=== PATIENT | female | born 1995 | race African-American/Black ===

== ENCOUNTER 2023-09-30 15:02 | Emergency (ER) | payer MEDICAID ==
[~2023-09-30] VITALS: Ht 167.6 cm; Wt 60.0 kg
[2023-09-30 15:23] VITALS: O2SAT 100
[2023-09-30] MEDS: IBUPROFEN 600MG TABLET PO ONE (17:59)
[2023-09-30] MEDS ORDERED: IBUP-2029 MT (18:04)
[2023-09-30 18:10] VITALS: BP 120/54; PULSE 68; RESP 17; TEMP 97.9
== END 2023-09-30 18:17 | disposition home or self-care (01) ==
LOC: ER 15:02
DX: S63.502A Unspecified sprain of left wrist, initial encounter (principal); R07.89 Other chest pain; Z98.890 Other specified postprocedural states; X58.XXXA Exposure to other specified factors, initial encounter; Y93.89 Activity, other specified; Y92.89 Other specified places as the place of occurrence of the external cause; Y99.8 Other external cause status
CPT/HCPCS: 71045; 73110; 99284